=== PATIENT | male | born 1995 | race Caucasian/White ===

== ENCOUNTER 2017-07-02 10:37 | Emergency (ER) | payer OTHER ==
[2017-07-02] MEDS ORDERED: Lidocaine 2% Viscous Solution 100 ML Bottle PO ONE (10:58)
[2017-07-02] MEDS ORDERED: Benzocaine 20% Topical Spray UD MUCMEM ONE (10:58)
[2017-07-02] MEDS ORDERED: Lidocaine 2% Viscous Solution 15 ML Cup PO ONE (11:01)
--- NOTE | 2017-07-02 11:09 | EDM.PDOC ---
ED HPI GENERAL MEDICAL PROBLEM - General Chief Complaint: ENT Problem Stated Complaint: TOOTH PAIN Time Seen by Provider: 07/02/17 10:39 Source of Information: Reports: Patient History Limitations: Reports: No Limitations - History of Present Illness INITIAL COMMENTS - FREE TEXT/NARRATIVE: HISTORY AND PHYSICAL: History of present illness: Patient is a 22-year-old male who presents to the emergency room with complaints of dental pain. He states he has been "putting off seeing the dentist for a while" and since last Monday has had increased left lower dental pain/discomfort. He noticed some swelling and redness over the weekend and has not found any relief with [id number] products. He does state that he will call the dentist office on Monday to arrange an appointment. He denies any ear pain, throat pain, shortness of breath or chest pain. Denies any fever, chills, abdominal pain, nausea, vomiting or diarrhea/constipation. He has been able to eat and drink appropriately. Review of systems: As per history of present illness and below otherwise all systems reviewed and negative. Past medical history: As per history of present illness and as reviewed below otherwise noncontributory. Surgical history: As per history of present illness and as reviewed below otherwise noncontributory. Social history: No reported history of drug or alcohol abuse. Family history: As per history of present illness and as reviewed below otherwise noncontributory. Physical exam: General: Developed and well-nourished 22-year-old male. Alert and oriented. Nontoxic appearing and in no acute distress. HEENT: Atraumatic, normocephalic, pupils equal and reactive bilaterally, negative for conjunctival pallor or scleral icterus, mucous membranes moist, # 19 moderate decay and erythema along the gumline with soft tissue swelling throat clear, neck supple, nontender, trachea midline. No drooling or trismus noted. No meningeal signs Lungs: Clear to auscultation, breath sounds equal bilaterally, chest nontender. Heart: S1S2, regular rate and rhythm without overt murmur Abdomen: Soft, nondistended, nontender. Negative for masses or hepatosplenomegaly. Negative for costovertebral tenderness. Pelvis: Stable nontender. Genitourinary: Deferred. Rectal: Deferred. Skin: Intact, warm, dry. No lesions or rashes noted. Extremities: Atraumatic, negative for cords or calf pain. Neurovascular unremarkable. Neuro: Awake, alert, oriented. Cranial nerves II through XII unremarkable. Cerebellum unremarkable. Motor and sensory unremarkable throughout. Exam nonfocal. Notes: Discussed with the patient the importance of follow-up with the dentist for definitive care. We'll place the patient on antibiotics, Clindamycin, and give him #15 tablets of tramadol. Dental balls have been given with education. Patient voices understanding and is agreeable to plan of care. He denies any further questions at this time. Diagnostics: [] Therapeutics: Viscous lidocaine/Hurricaine spray Impression: Dental abscess Dental decay Plan: 1. Please take your antibiotic as prescribed. 2. Tylenol and/or ibuprofen as needed for pain management. A limited number of tramadol have been prescribed for moderate to severe pain. Please do not take this while driving or needing to be functioning outside of the house. This may cause drowsiness. Dental balls, a topical numbing agent, has been given to you. He may use these as needed. Do not swallow. 3. As we discussed, you need to follow-up with the dentist next week for definitive care. Return to the ED as needed and as discussed. Definitive disposition and diagnosis as appropriate pending reevaluation and review of above. Left Lower Tooth/Teeth Pain Score (Numeric/FACES): 10 - Related Data Allergies Allergy/AdvReac Type Severity Reaction Status Date / Time No Known Allergies Allergy Verified 07/02/17 10:54 Home Meds: Home Meds . [No Known Home Meds] 07/02/17 [History] Past Medical History - Past Health History Medical/Surgical History: Denies Medical/Surgical History - Infectious Disease History Infectious Disease History: Reports: Chicken Pox Social & Family History - Family History Family Medical History: Noncontributory - Tobacco Use Smoking Status *Q: Current Every Day Smoker Years of Tobacco use: 3 Packs/Tins Daily: 1 - Recreational Drug Use Recreational Drug Use: Yes Drug Use in Last 12 Months: Yes Recreational Drug Type: Reports: Marijuana/Hashish Recreational Drug Use Frequency: Socially ED ROS ENT - Review of Systems Review Of Systems: ROS reveals no pertinent complaints other than HPI. ED EXAM, ENT - Physical Exam Exam: See Below (See dictation) Course - Vital Signs Last Recorded V/S: Last Vital Signs Temp 96.6 F 07/02/17 10:51 Pulse 92 07/02/17 10:51 Resp 18 07/02/17 10:51 BP 130/97 H 07/02/17 10:51 Pulse Ox 97 07/02/17 10:51 - Orders/Labs/Meds Meds: Medications Discontinued Medications Generic Name Dose Route Start Last Admin Trade Name Benjie PRN Reason Stop Dose Admin Benzocaine 2 each 07/02/17 10:58 Hurricaine One 20% MUCMEM 07/02/17 10:59 ONETIME ONE Lidocaine HCl 20 ml 07/02/17 10:58 Xylocaine 2% Viscous PO 07/02/17 10:59 ONETIME ONE Lidocaine HCl 15 ml 07/02/17 11:01 Xylocaine 2% Viscous PO 07/02/17 11:02 ONETIME ONE Departure - Departure Time of Disposition: 11:09 Disposition: Home, Self-Care 01 Clinical Impression: Dental abscess, Dental decay - Discharge Information Instructions: Dental Abscess, [id number] Referrals: PCP,None [Primary Care Provider] - Additional Instructions: The following information is given to patients seen in the emergency department who are being discharged to home. This information is to outline your options for follow-up care. We provide all patients seen in our emergency department with a follow-up referral. The need for follow-up, as well as the timing and circumstances, are variable depending upon the specifics of your emergency department visit. If you don't have a primary care physician on staff, we will provide you with a referral. We always advise you to contact your personal physician following an emergency department visit to inform them of the circumstance of the visit and for follow-up with them and/or the need for any referrals to a consulting specialist. The emergency department will also refer you to a specialist when appropriate. This referral assures that you have the opportunity for follow-up care with a specialist. All of these measure are taken in an effort to provide you with optimal care, which includes your follow-up. Under all circumstances we always encourage you to contact your private physician who remains a resource for coordinating your care. When calling for follow-up care, please make the office aware that this follow-up is from your recent emergency room visit. If for any reason you are refused follow-up, please contact the [facility] Emergency Department at and asked to speak to the emergency department charge nurse. [facility] [address] [place] [id number] 1. Please take your antibiotic as prescribed. 2. Tylenol and/or ibuprofen as needed for pain management. A limited number of tramadol have been prescribed for moderate to severe pain. Please do not take this while driving or needing to be functioning outside of the house. This may cause drowsiness. Dental balls, a topical numbing agent, has been given to you. He may use these as needed. Do not swallow. 3. As we discussed, you need to follow-up with the dentist next week for definitive care. Return to the ED as needed and as discussed.
== END 2017-07-02 11:20 | disposition home or self-care (01) ==
LOC: MW.ED 10:37
DX: K04.7 Periapical abscess without sinus (principal); K02.9 Dental caries, unspecified; F17.210 Nicotine dependence, cigarettes, uncomplicated
CPT/HCPCS: 99282; A9270

== ENCOUNTER 2017-07-02 18:56 | Emergency (ER) | payer OTHER ==
[2017-07-02] MEDS ORDERED: cefTRIAXone 1,000 MG in Lidocaine 1% 4 ML IM ONE (19:40)
--- NOTE | 2017-07-02 19:40 | EDM.PDOC ---
ED HPI GENERAL MEDICAL PROBLEM - General Chief Complaint: ENT Problem Stated Complaint: PT HAS TOOTHACHE Time Seen by Provider: 07/02/17 19:34 Source of Information: Reports: Patient - History of Present Illness INITIAL COMMENTS - FREE TEXT/NARRATIVE: HISTORY AND PHYSICAL: History of present illness: [Chief complaint dental pain Patient was in this morning with similar complaint, he was started on Cleocin has been taking ibuprofen as well as tramadol he has dental balls of his exposure we did discuss a boost with Rocephin as well as upping his dose of ibuprofen and tramadol temporary filling may benefit. Unfortunately the patient has severe decay of the left lower molar resulting in nerve root exposure there is minimal swelling and tenderness along the jaw line however most of his pain seems to stem from the actual dental caries and possibly nerve root exposure. Cool water and air seemed to alleviate the pain somewhat medication as helped but he has only been taking the medication for approximately 8 hours. No fever nausea vomiting chills sweats ] Review of systems: As per history of present illness and below otherwise all systems reviewed and negative. Past medical history: As per history of present illness and as reviewed below otherwise noncontributory. Surgical history: As per history of present illness and as reviewed below otherwise noncontributory. Social history: No reported history of drug or alcohol abuse. Family history: As per history of present illness and as reviewed below otherwise noncontributory. Physical exam: HEENT: Atraumatic, normocephalic, pupils reactive, negative for conjunctival pallor or scleral icterus, mucous membranes moist, throat clear, neck supple, nontender, trachea midline. left retromolar severe decay Lungs: Clear to auscultation, breath sounds equal bilaterally, chest nontender. Heart: S1S2, regular, negative for clicks, rubs, or JVD. Abdomen: Soft, nondistended, nontender. Negative for masses or hepatosplenomegaly. Negative for costovertebral tenderness. Pelvis: Stable nontender. Genitourinary: Deferred. Rectal: Deferred. Extremities: Atraumatic, negative for cords or calf pain. Neurovascular unremarkable. Neuro: Awake, alert, oriented. Cranial nerves II through XII unremarkable. Cerebellum unremarkable. Motor and sensory unremarkable throughout. Exam nonfocal. Diagnostics: [ clinical ] Therapeutics: [ continue Cleocin, ibuprofen 800 3 times a day, tramadol 100 mg 3 times daily, temporary filling may benefit dental balls patient states he has arranged an dental appointment for tomorrow and will be following with this ] Impression: [ dental pain secondary to dental caries ] Definitive disposition and diagnosis as appropriate pending reevaluation and review of above. tooth Pain Score (Numeric/FACES): 10 - Related Data Allergies Allergy/AdvReac Type Severity Reaction Status Date / Time No Known Allergies Allergy Verified 07/02/17 19:00 Home Meds: Home Meds . [No Known Home Meds] 07/02/17 [History] Past Medical History - Past Health History Medical/Surgical History: Denies Medical/Surgical History - Infectious Disease History Infectious Disease History: Reports: Chicken Pox Social & Family History - Family History Family Medical History: Noncontributory - Tobacco Use Smoking Status *Q: Current Every Day Smoker Years of Tobacco use: 4 Packs/Tins Daily: 1 - Recreational Drug Use Recreational Drug Use: Yes Drug Use in Last 12 Months: Yes Recreational Drug Type: Reports: Marijuana/Hashish Recreational Drug Use Frequency: Socially ED ROS GENERAL - Review of Systems Review Of Systems: ROS reveals no pertinent complaints other than HPI. ED EXAM, GENERAL - Physical Exam Exam: See Below Course - Vital Signs Last Recorded V/S: Last Vital Signs Temp 97.4 F 07/02/17 19:00 Pulse 82 07/02/17 19:00 Resp 18 07/02/17 19:00 BP 137/81 07/02/17 19:00 Pulse Ox 98 07/02/17 19:00 Departure - Departure Time of Disposition: 19:38 Disposition: Home, Self-Care 01 Condition: Good Clinical Impression: Pain due to dental caries - Discharge Information Referrals: PCP,None [Primary Care Provider] - Additional Instructions: Ibuprofen 800 mg every 8 hours 10 days Tramadol 100mg 3 times daily as directed Continue with dental balls Temporary filling may benefit discontinued obtained at [facility] Follow-up with dentist as scheduled tomorrow The following information is given to patients seen in the emergency department who are being discharged to home. This information is to outline your options for follow-up care. We provide all patients seen in our emergency department with a follow-up referral. The need for follow-up, as well as the timing and circumstances, are variable depending upon the specifics of your emergency department visit. If you don't have a primary care physician on staff, we will provide you with a referral. We always advise you to contact your personal physician following an emergency department visit to inform them of the circumstance of the visit and for follow-up with them and/or the need for any referrals to a consulting specialist. The emergency department will also refer you to a specialist when appropriate. This referral assures that you have the opportunity for follow-up care with a specialist. All of these measure are taken in an effort to provide you with optimal care, which includes your follow-up. Under all circumstances we always encourage you to contact your private physician who remains a resource for coordinating your care. When calling for follow-up care, please make the office aware that this follow-up is from your recent emergency room visit. If for any reason you are refused follow-up, please contact the [facility] emergency department at and asked to speak to the emergency department charge nurse.
== END 2017-07-02 20:10 | disposition home or self-care (01) ==
LOC: MW.ED 18:56
DX: K02.9 Dental caries, unspecified (principal); F17.210 Nicotine dependence, cigarettes, uncomplicated; K04.7 Periapical abscess without sinus
CPT/HCPCS: 96372; 99282; A9270; J0696; J2001